=== PATIENT | female | born 1990 | race Caucasian/White ===

== ENCOUNTER 2020-09-10 13:16 | Outpatient (REF) | payer MEDICAID, SELFPAY ==
--- NOTE | ~2020-09-10 | MM_ITS ---
EXAMINATION: MM DIAGNOSTIC DIGITAL BREAST TOMOSYNTHESIS, BILATERAL US DIAGNOSTIC ULTRASOUND BREAST, LEFT CLINICAL INFORMATION: 30-year-old female with palpable area noted by patient inferior left breast. Prior bilateral implants performed in [place] approximately 1 year ago. No known family history breast cancer. No prior breast imaging. The lifetime risk of breast cancer based on the Tyrer-Cuzick Model is 10%. COMPARISON: None (current study represents initial baseline exam). TECHNIQUE: Digital mammography is performed in craniocaudal and mediolateral oblique views. Digital breast tomosynthesis is performed in implant-displaced craniocaudal and implant-displaced mediolateral oblique views. Synthesized 2D images are generated from the tomosynthesis. Computer-aided detection (CAD) is performed for this exam. Additional bilateral magnification CC and bilateral magnification LM views are obtained. Ultrasound left breast is targeted to the area of clinical concern 4:00 to 8:00 position. Patient is able to point to the focal area of concern at time of imaging. Grayscale imaging and color Doppler are performed without and with harmonics. FINDINGS: There are scattered areas of fibroglandular density (ACR BI-RADS breast composition Category b). There are bilateral implants. The implant contours are smooth and unremarkable. There is minor scarring consistent with the implant surgery. There is no significant mass, suspicious architectural changes, or suspicious calcifications. The left breast has group of 2 or 3 dominant oil cysts at site of palpable concern 6:00 position with overall size approximately 2.8 x 2.2 cm. There is associated probable benign dystrophic calcification in this area. The remainder of the left breast is unremarkable. The right breast has focal nodular asymmetry in area of scarring measuring approximately 1.4 x 1.0 cm with associated probable benign dystrophic calcification in this area. The remainder of the right breast is unremarkable. Ultrasound left breast targeted to the area of clinical concern demonstrates bilobed heterogeneous mass of intermediate echogenicity and overall dimensions approximately 2.5 x 2.1 x 1.6 cm. There is no associated internal color flow. There is no increased or decreased through transmission of sound. The shape and size corresponds to the oil cysts on mammography. Results and recommendation are discussed with the patient at time of visit. The clinically palpable area of concern corresponds to postsurgical changes with oil cyst/fat necrosis. There are similar findings on the right are smaller size and bilateral probable benign dystrophic calcifications in these areas. Management plan is for short interval bilateral six-month follow-up diagnostic mammography to reassess the calcifications. MM/MM tomosynthesis diag imp BI IMPRESSION: 1. Postsurgical changes with fat necrosis and oil cysts bilateral inferior breasts, larger on left. This corresponds to the left-sided palpable concern. 2. Probable benign bilateral dystrophic calcifications in area of bilateral fat necrosis/scarring. ASSESSMENT: BI-RADS 3: Probably Benign RECOMMENDATION: Diagnostic bilateral mammography to include magnification views in 6 months. This patient's information was entered into a reminder system with a target due date for their next mammogram.
== END 2020-09-10 13:17 | disposition home or self-care (01) ==
LOC: HO.MAMMO 13:16
PROVIDERS: Visit Provider Nurse Practitioner Family
DX: N63.25 Unspecified lump in the left breast, overlapping quadrants (principal)
CPT/HCPCS: 76642; 77062; 77066

== ENCOUNTER 2021-04-25 11:02 | Outpatient (REF) | payer MEDICAID, SELFPAY ==
--- NOTE | ~2021-04-25 | MM_ITS ---
EXAMINATION: MM DIAGNOSTIC DIGITAL BREAST TOMOSYNTHESIS, BILATERAL CLINICAL INFORMATION: Six-month follow-up probable benign dystrophic calcifications inferior breasts. Prior bilateral implants, surgery performed in [place] approximately 1.5 years ago. No known family history breast cancer. TC score 7%. Patient age 31. COMPARISON: Mammography: 09/10/2020 (diagnostic, baseline, BI-RADS 3). TECHNIQUE: Digital mammography is performed in craniocaudal and mediolateral oblique views. Digital breast tomosynthesis is performed in implant-displaced craniocaudal and implant-displaced mediolateral oblique views. Synthesized 2D images are generated from the tomosynthesis. Computer-aided detection (CAD) is performed for this exam. Additional bilateral implant displaced magnification CC and bilateral implant displaced magnification LM views FINDINGS: There are scattered areas of fibroglandular density (ACR BI-RADS breast composition Category b). The implant contours are smooth and similar to prior study. There are incidental oil cysts again noted anterior 6:00 left breast. The dystrophic calcifications for follow-up are slightly increased and coarser and benign appearing. There is no interval mass or architectural abnormality. Bilateral breast calcifications will be reassessed again at time of annual bilateral exam, due in 6 months. Results are provided to the patient at time of visit by the technologist. MM/MM tomosynthesis diag imp BI IMPRESSION: Postsurgical changes. Dystrophic benign-appearing calcifications increased and coarser bilateral lower breasts. No suspicious change. ASSESSMENT: BI-RADS 3: Probably Benign RECOMMENDATION: Diagnostic mammography at time of annual bilateral exam, due in 6 months. This patient's information was entered into a reminder system with a target due date for their next mammogram.
== END 2021-04-25 11:03 | disposition home or self-care (01) ==
LOC: HO.MAMMO 11:02
PROVIDERS: Visit Provider Nurse Practitioner Family
DX: R92.1 Mammographic calcification found on diagnostic imaging of breast (principal)
CPT/HCPCS: 77062; 77066

== ENCOUNTER 2022-02-03 20:48 | Emergency (ER) | payer MEDICAID, SELFPAY ==
[2022-02-03 21:14] VITALS: BP 122/69; PULSE 64; RESP 16; TEMP 36.9; O2SAT 97; BMI 33.1
--- OUTSIDE RECORDS SUMMARY | 2022-02-03 21:40 | XMS_ITS | Continuity of Care Document ---
:1990 Author Organization [facility] Address [address] [place] [address]- Care Team Providers Name Role Phone Rafi AC, Jovani Alfonso Primary Care Physician [place] [facility] [place]): [place]25[place]20 - 10/25/20 [facility] [address] [place] [address]- Attending Physician: Suzie Dia Admitting Physician: AdmtrSuzie Referring Physician: Admtr, Ar8 Allergies, Adverse Reactions, Alerts Substance Reaction Severity Status NKA Active Medications ferrous sulfate 325 mg oral tablet 1 tablet = 325 mg, By Mouth, 3 times a day, 0 Refills, Maintenance, 09/25/20 17:00:00 EDT, Partial fill upon patient request if the prescription is for a schedule II opioid drug. Start Date: 09/25/20 Status: OrderedNuvaRing 0.015 mg-0.120 mg vaginal ring 1 each, Vaginally, 0 Refills, Maintenance, 09/25/20 16:59:00 EDT, Partial fill upon patient request if the prescription is for a schedule II opioid drug. Start Date: 09/25/20 Status: OrderedVitamin D3 2000 intl units oral capsule = 50 mcg, By Mouth, Daily, 0 Refills, Maintenance, 09/25/20 17:00:00 EDT, Partial fill upon patient request if the prescription is for a schedule II opioid drug. Start Date: 09/25/20 Status: Ordered Social History Social History Type Response Smoking Status Former smoker, quit more cameron n 30 days ago entered on: 09/25/20 Sex
--- NOTE | 2022-02-03 22:04 | ED.ANIMALBIT ---
HPI - Animal Bite General Chief Complaint: Wound/Laceration Stated Complaint: bite Time Seen by Provider: 02/03/22 21:25 Source: patient Mode of arrival: ambulatory Limitations: no limitations History of Present Illness HPI narrative: Patient is a 32-year-old female who presents emergency department for evaluation of dog bite to the nose. This occurred prior to arrival. She is the truckload owner operator of the dog, dog is up-to-date on all vaccinations. No active bleeding. Denies loss of consciousness. Denies anticoagulant usage or coagulation disorder Related Data Previous Rx's Medication Instructions Recorded amoxicillin 875 mg-potassium 1 tab PO Q12H #14 tabs 02/03/22 clavulanate 125 mg tablet Allergies Allergy/AdvReac Type Severity Reaction Status Date / Time No Known Allergies Allergy Unverified 12/21/19 17:17 Review of Systems Review of Systems: ENT: Positive animal bite to nose Yes all other systems are reviewed and are negative PMFSH Past Medical History Attestation statement: The following information was validated with the patient. Source: old records reviewed Social History Social History Advance Directives: No Advance Directives Information Provided: No Physical Exam ED Vital Signs: Vital Signs - 24 hr 02/03/22 21:14 Temperature 98.5 F Pulse Rate 64 Respiratory Rate 16 Blood Pressure 122/69 Pulse Oximetry 97 Oxygen Delivery Method Room Air BMI result Body Mass Index 33.1 Appearance: Alert.?Oriented to person, place and time. No acute distress.?Normal affect. Eyes: Pupils equal, round and reactive to light.? ENT: Pharynx normal.? Superficial lacerations to the external nose, no septal hematoma, right nares with scabbed laceration, nares patent bilaterally Neck: Normal inspection.? Neck supple.?? CVS: Heart sounds normal. Normal heart rate and rhythm.? Pulses normal.?? Respiratory: No respiratory distress.? Lung sounds clear to auscultation bilaterally?? Abdomen: Soft and non-tender. Normoactive bowel sounds. Skin: Skin warm and dry.? Normal skin color.? ? Extremities: No lower extremity edema.? Neuro: Moves all extremities spontaneously. Sensation intact bilaterally. No focal neuro deficits. Ambulates with normal steady gait. Course Course Course Narrative: Patient is a 32-year-old female with no significant past medical history presenting to emergency department for evaluation after dog bite. Lacerations to the nose or superficial, no active bleeding. No obvious deformity, no pain upon palpation, low suspicion for fracture, would defer XR imaging at this time. Dog is up-to-date on vaccinations and is owned by the patient. At this time no indication for rabies immune globulin or vaccination. Wounds cleansed with normal saline, topical bacitracin applied. Reviewed worrisome signs and symptoms to return back to emergency department for. Discharged home with a prescription for Augmentin. Outpatient follow-up with primary care provider as needed. Patient discharged home in stable condition, all questions were answered. [facility] - Animal Bite Medical Records Attestation: I reviewed the patient's medical records. Discharge Plan Discharge Clinical Impression: Laceration, Dog bite of nose Patient Disposition: Home, Self-Care Instructions: Animal Bite (ED) Additional Instructions: Clean the area twice daily with warm water and mild non scented soap. Apply bacitracin twice daily. You have been given a new prescription for Augmentin, please complete this entire course. If you develop worsening pain, redness, swelling, discharge, fevers, chills he should have this re-evaluated Follow-up with primary care provider as needed. Prescriptions: New amoxicillin-pot clavulanate 875-125 mg tablet 1 tab PO Q12H Qty: 14 0RF Referrals: Physician,Kelly J [Primary Care Provider] - Interventions: ED Discharge Assessment Last Done: 02/03/22 22:21 Discharge Date/Time: 02/03/22 22:24
== END 2022-02-03 22:24 | disposition home or self-care (01) ==
PROVIDERS: Emergency Provider Internal Medicine
DX: S00.37XA Other superficial bite of nose, initial encounter (principal); W54.0XXA Bitten by dog, initial encounter; Y93.9 Activity, unspecified; Y92.039 Unspecified place in apartment as the place of occurrence of the external cause; Y99.9 Unspecified external cause status
CPT/HCPCS: 99282; 99283

== ENCOUNTER 2022-06-10 13:33 | Outpatient (REF) | payer MEDICAID, SELFPAY ==
--- NOTE | ~2022-06-10 | MM_ITS ---
EXAMINATION: MM DIAGNOSTIC DIGITAL BREAST TOMOSYNTHESIS, BILATERAL CLINICAL INFORMATION: 32-year-old, bilateral follow-up probable benign dystrophic calcifications inferior breasts. Prior history bilateral implants, performed in [place]. TC score 7%. No known family history breast cancer. COMPARISON: Mammography: 04/25/2021, 09/10/2020 (diagnostic baseline, BI-RADS 3). TECHNIQUE: Digital mammography is performed in craniocaudal and mediolateral oblique views. Digital breast tomosynthesis is performed in implant-displaced craniocaudal and implant-displaced mediolateral oblique views. Synthesized 2D images are generated from the tomosynthesis. Computer-aided detection (CAD) is performed for this exam. Additional views are obtained: Implant displaced right MLO, bilateral magnification CC, bilateral magnification ML. FINDINGS: There are scattered areas of fibroglandular density (ACR BI-RADS breast composition Category b). There are bilateral implants. Implant contours are smooth and similar to prior study. There are postsurgical changes with minor scarring and oil cysts inferior breasts. There is no significant mass, developing density, or architectural abnormality. Again, there are benign appearing dystrophic calcifications in the area of scars. Some fine calcifications are also present in the area of scarring, likely early dystrophic. There are no significant changes from prior diagnostic exam. Management plan is for final diagnostic surveillance in 12 months. Results are provided to the patient at time of visit by the technologist. MM/MM tomosynthesis diag imp BI IMPRESSION: -No significant changes from prior diagnostic exams. ASSESSMENT: BI-RADS 3: Probably Benign RECOMMENDATION: Final diagnostic follow-up mammography surveillance in 12 months. This patient's information was entered into a reminder system with a target due date for their next mammogram.
== END 2022-06-10 13:34 | disposition home or self-care (01) ==
LOC: HO.MAMMO 13:33
PROVIDERS: PCP General Practice; Visit Provider General Practice
DX: R92.1 Mammographic calcification found on diagnostic imaging of breast (principal)
CPT/HCPCS: 77062; 77066

== ENCOUNTER 2023-06-17 12:45 | Outpatient (REF) | payer MEDICAID, SELFPAY ==
--- NOTE | ~2023-06-17 | MM_ITS ---
EXAMINATION: MM DIAGNOSTIC DIGITAL BREAST TOMOSYNTHESIS, BILATERAL CLINICAL INFORMATION: 12 month Follow-up for bilateral inferior probable dystrophic calcifications. 33-year-old female with bilateral implants performed in [place]. No known family history of breast CA.. COMPARISON: Mammography: 06/10/2022, 04/25/2021, 04/12/2020. TECHNIQUE: Digital mammography is performed in craniocaudal and mediolateral oblique views. Digital breast tomosynthesis is performed in implant-displaced craniocaudal and implant-displaced mediolateral oblique views. Synthesized 2D images are generated from the tomosynthesis. Computer-aided detection (CAD) is performed for this exam. FINDINGS: There are scattered areas of fibroglandular density (ACR BI-RADS breast composition Category b). There are bilateral implants in place. Implant contours are smooth and similar to the prior study. There are no implant complications identified. Stable post surgical changes with scarring and dystrophic calcifications likely representing fat necrosis in both inferior breasts left greater than right. There has been no change in these findings on the left. On the right, the number of calcifications has significantly decreased indicating benignity. There are a few scattered oil cysts present. There are no masses, developing regions of architectural distortion, or suspicious grouped amorphous calcifications in either breast. Parenchymal pattern is unchanged bilaterally. No skin or axillary abnormality. MM/MM tomosynthesis diag imp BI IMPRESSION: There are no significant changes from prior study. The dystrophic calcifications have decreased in the inferior right breast and are benign. The dystrophic calcifications in the inferior left breast have remained unchanged. These are also benign. No further follow-up recommended. No implant abnormalities bilaterally. No findings suspicious for malignancy in either breast. ASSESSMENT: BI-RADS BI-RADS 2 - Benign Findings RECOMMENDATION: Mammo at 40 or earlier if clinically needed Results were provided to the patient at time of visit by the technologist. This patient's information was entered into a reminder system with a target due date for their next mammogram.
== END 2023-06-17 12:46 | disposition home or self-care (01) ==
LOC: HO.MAMMO 12:45
PROVIDERS: Visit Provider General Practice
DX: R92.1 Mammographic calcification found on diagnostic imaging of breast (principal)
CPT/HCPCS: 77062; 77066

== ENCOUNTER → 2023-06-17 13:00 | Outpatient (BNV) | payer MEDICAID, SELFPAY | PROVIDERS: Visit Provider Radiology Diagnostic Radiology | DX: R92.1 Mammographic calcification found on diagnostic imaging of breast (principal) | CPT/HCPCS: 77061; 77065 ==

== ENCOUNTER 2024-01-26 12:14 | Outpatient (REF) | payer MEDICAID, SELFPAY ==
[2024-01-26 14:00] LABS: Alanine Aminotransferase 38 U/L (0-31); Albumin Level 3.6 g/dL (3.5-5.0); Alkaline Phosphatase 70 U/L (39-117); Anion Gap 11 (12-20); Aspartate Amino Transferase 36 U/L (5-31); Bilirubin Total 0.3 mg/dL (0.0-1.0); Blood Urea Nitrogen 12 mg/dL (9-16); Calcium 9.3 mg/dL (8.4-10.2); Carbon Dioxide 23 mmol/L (22-29); Chloride 109 mmol/L (96-108); Cholesterol 199 mg/dL (<200); Estimated Glomerular Filt Rate > 60; Glucose Random 101 mg/dL (60-115); HDL Cholesterol 52 mg/dL (>40); LDL Cholesterol Calculated 123 mg/dL (<100); Potassium 3.6 mmol/L (3.3-5.1); Sodium 139 mmol/L (135-145); Total Protein 7.1 g/dL (6.5-8.0); Triglycerides 121 mg/dL (<150)
[2024-01-26 14:02] LABS: Estimated Average Glucose 97 mg/dL; Hemoglobin A1C 96.4185 umol/L; Total Hemoglobin (HGBA1C) 3111.6947 umol/L
[2024-01-27 08:25] LABS: HIV AB/AG Nonreactive (Nonreactive); HIV Num 1 0.05 S/CO (0.00-0.99); ~HepC Num1 0.06 S/CO (0.00-0.79); ~Hepatitis C Antibody Nonreactive (Nonreactive)
[2024-01-28 23:14] LABS: RPR Rapid Plasma Reagin NON-REACTIVE (NON-REACTIVE)
== END 2024-01-26 12:15 | disposition home or self-care (01) ==
LOC: HO.HHCL 12:14
PROVIDERS: PCP General Practice; Visit Provider General Practice
DX: E66.3 Overweight (principal); Z11.3 Encounter for screening for infections with a predominantly sexual mode of transmission; M25.562 Pain in left knee; G89.29 Other chronic pain
CPT/HCPCS: 36415; 73564; 80053; 80061; 83036; 86592; 86803; 87389